=== PATIENT | male | born 1970 ===

== ENCOUNTER → 2018-02-13 21:48 | Outpatient (REF) | payer OTHER, SELFPAY ==
[2018-02-13 22:12] LABS: HEMOLYSIS < 15 (0-50)
[2018-02-13 22:17] LABS: Alanine Aminotransferase 35 IU/L (21-72); Albumin 4.6 g/dL (3.5-5.0); Albumin Globulin Ratio 1.6 (1.0-2.8); Alkaline Phosphatase 40 U/L (38-126); Aspartate Aminotransferase 46 IU/L (17-59); Bilirubin Total 0.8 mg/dL (0.2-1.3); Blood Urea Nitrogen 12 mg/dL (9-20); Calcium 9.4 mg/dL (8.4-10.2); Carbon Dioxide 29 mmol/L (22-32); Chloride 101 mmol/L (98-107); Cholesterol 203 mg/dL (140-199); Estimated Glomerular Filt Rate > 60.0 mL/min (>60); Globulin 2.8 g/dL (1.7-4.1); Glucose 89 mg/dL (70-100); HDL Cholesterol 58 mg/dL (40-60); LDL Cholesterol Calculated 133 mg/dL (<100); Potassium 4.4 mmol/L (3.4-5.1); Sodium 142 mmol/L (137-145); Total Protein 7.4 g/dL (6.3-8.2); Triglycerides 59 mg/dL (35-150)
[2018-02-13 22:49] LABS: Thyroid Stimulating Hormone 1.27 uIU/mL (0.47-4.68)
[2018-02-13 23:22] LABS: High Sensitivity CRP - Cardiac 0.5 mg/L (1.0-3.0)
[2018-02-13 23:32] LABS: Free T3, Triiodothyronine Free 4.12 pg/mL (2.77-5.27); T4 Total Thyroxine 7.56 ug/dL (5.5-11.0)
[2018-02-13 23:50] LABS: Cortisol AM (Before 10AM) 12.6 ug/dL (4.46-22.7)
== END ==
LOC: LAB 21:48
PROVIDERS: Visit Provider Naturopath
DX: Z00.00 Encounter for general adult medical examination without abnormal findings (principal)
CPT/HCPCS: 36415; 80053; 80061; 82533; 84436; 84443; 84481; 86140